=== PATIENT | male | born 1945 | race Caucasian/White ===

== ENCOUNTER 2019-09-10 08:43 | Day surgery (SDC) | payer MEDICARE, BC ==
[~2019-09-10] VITALS: Ht 170.2 cm; Wt 89.0 kg
[~2019-09-10 08:43] MED LIST: AMIO200 PO; AMLO10 PO; ASPI325; ASPI81CH PO; ATEN25 PO; ERYT.5TO OD; FOLI400 PO; HYDACE5 PO; HYDCHL25 PO; HYDR1TAB94 PO; LISI5 PO; METO25 PO; METO25ER PO; MULTIVITAMIN PO; Multivitamins1 EAC6 PO; NAPR220 PO; NITR.4SL; OMEP20ER PO; PRAV20 PO; PRED20 PO; ROSU10TA PO; SENN187 PO
[2019-09-10] MEDS ORDERED: NITR.6SL SL (09:12)
--- NOTE | 2019-09-10 09:14 | NUR ---
visits patient pre-op. EKG ordered.
--- NOTE | 2019-09-10 11:48 | NUR ---
sBAR FROM [facility] RN pt supine with no pain. Right groin site wnl no bleeding or hematoma noted. Pt with IV infusing at 200/hr per order #2 bag up with 1000ml brittni. Pt with call light, In reverse trendelenburg. IV right A/C infusing without difficulty. Pt NS Rythm.
--- NOTE | 2019-09-10 13:01 | NUR ---
PT HOB RAISED TO 45 DEGREES, GURNEY IN REVERSE TRENDELENBERG POSITION. RIGHT GROIN SITE STABLE, MARY BETH PAD AND CLEAR TEGADERM INTACT. SOFT NON TENDER WITH NO ACTIVE BLEEDING, OOZING, OR PAIN NOTED. PT PROVIDED WITH LUNCH TRAY. DISCHARGE INSTRUCTIONS REVIEWED WITH PT AND FAMILY MEMBER. BOTH VERBALIZED UNDERSTANDING OF INSTRUCTIONS. PAPERWORK PROVIDED IN [facility]. WILL CONTINUE TO MONITOR. VSS.
--- NOTE | 2019-09-10 14:14 | NUR ---
PT RIGHT GROIN SITE REMAINS STABLE, SOFT NON TENDER WITH NO ACTIVE BLEEDING, OOZING, OR PAIN PER PT. PT OUT OF BED, GETS DRESSED WITH LIMITED ASSISTANCE FROM HIS . IV REMAINS INTACT. PT AMBULATES WITH STEADY GAIT AROUND RECOVERY ROOM AND DOWN HALLWAY. DENIES CP OR SOB. AOX4. WILL CONTINUE TO MONITOR SITE UNTIL DISCHARGE.
--- NOTE | 2019-09-10 14:42 | NUR ---
PT PREVIOUSLY PROVIDED WITH DISPO INFORMATION, AMBULATES WITH STEADY GAIT, URINATES WITH NO DIFFICULTIES, TOLERATES PO FLUIDS/FOOD, RIGHT GROIN SITE REMAINS STABLE- DRESSING C/D/I SOFT NON TENDER WITH NO ACTIVE BLEEDING, OOZING, OR PAINNOTED. PT PLANS TO DRIVE THEM HOME. PT ENCOURAGED TO FOLLOW UP SCHEDUELED WITH PROVIDER, PT ALSO INFORMED AND PROVIDED WITH ORDER TO HAVE CHEM 8 LAB DRAWN ON 09/12/[address] JOSEPH. PT VERBALIZED UNDERSTANDING. IV REMOVED FROM RAC WITH CATH INTACT, PRESSURE DRESSING APPLIED. PT DENIES NEED FOR W/C RIDE OUT TO PRIVATE VEHICLE. NADN AT TIME OF DISCHARGE.
== END 2019-09-10 14:00 | disposition home or self-care (01) ==
LOC: MHTC 08:43
PROC: B205YZZ Plain Radiography of Left Heart using Other Contrast (ICD-10-PCS; principal; 2019-09-10)
PROC: B201YZZ Plain Radiography of Multiple Coronary Arteries using Other Contrast (ICD-10-PCS; principal; 2019-09-10)
PROC: B203YZZ Plain Radiography of Multiple Coronary Artery Bypass Grafts using Other Contrast (ICD-10-PCS; principal; 2019-09-10)
PROC: 4A023N7 Measurement of Cardiac Sampling and Pressure, Left Heart, Percutaneous Approach (ICD-10-PCS; principal; 2019-09-10)
DX: I25.10 Atherosclerotic heart disease of native coronary artery without angina pectoris (principal); I25.810 Atherosclerosis of coronary artery bypass graft(s) without angina pectoris; I10 Essential (primary) hypertension; E78.5 Hyperlipidemia, unspecified; E66.9 Obesity, unspecified; Z79.82 Long term (current) use of aspirin; Z79.899 Other long term (current) drug therapy; Z87.891 Personal history of nicotine dependence; Z88.0 Allergy status to penicillin; Z91.040 Latex allergy status; Z68.31 Body mass index [BMI] 31.0-31.9, adult
CPT/HCPCS: 93005; 93010; 93459; 93567; 99152; 99153; C1769; C1894; G0278; J0360; J1644; J2250; J3010; J7030; Q9967

== ENCOUNTER 2021-06-25 10:40 | Emergency (ER) | payer MEDICARE, BC ==
[~2021-06-25] VITALS: Ht 170.2 cm; Wt 82.1 kg
[~2021-06-25 10:40] MED LIST changes: +NITR.6SL SL
[2021-06-25 11:14] LABS: BASOPHILS ABSOLUTE AUTO 0.06 K/mm3 (0.00-0.23); BASOPHILS PERCENT AUTO 1 % (0-2); EOSINOPHILS ABSOLUTE AUTO 0.16 K/mm3 (0.00-0.68); EOSINOPHILS PERCENT AUTO 2 % (0-6); Hematocrit 44.7 % (37.0-53.0); IMMATURE GRAN ABSOLUTE AUTO 0.01 K/mm3 (0.00-0.10); IMMATURE GRAN PERCENT AUTO 0 % (0-1); LYMPHOCYTES ABSOLUTE AUTO 2.32 K/mm3 (0.84-5.20); LYMPHOCYTES PERCENT AUTO 29 % (21-46); MONOCYTES ABSOLUTE AUTO 0.74 K/mm3 (0.16-1.47); MONOCYTES PERCENT AUTO 9 % (4-13); Mean Corpuscular HGB 30.5 pg (26.0-34.0); Mean Corpuscular HGB Conc 33.6 g/dL (31.5-36.5); Mean Corpuscular Volume 91 fL (80-100); Mean Platelet Volume 11.3 fL (9.1-12.4); NEUTROPHILS ABSOLUTE AUTO 4.83 K/mm3 (1.96-9.15); NEUTROPHILS PERCENT AUTO 60 % (41-73); Platelet Count 174 K/mm3 (150-400); RDW Coefficient Variation 12.7 % (11.7-14.2); RDW Standard Deviation 42.3 fL (35.1-46.3); Red Blood Cell Count 4.92 M/mm3 (4.30-5.90); White Blood Cell Count 8.12 K/mm3 (4.00-11.30)
[2021-06-25 11:37] LABS: Alanine Aminotransfer (ALT/SGP 33 U/L (12-78); Albumin, Blood 4.4 g/dL (3.4-5.0); Albumin/Globulin Ratio 1.3 (0.8-1.8); Alk Phos 36 U/L (50-136); Anion Gap 7 mmol/L (6-16); Aspartate Aminotrans (AST/SGOT 20 U/L (12-37); Bilirubin, Total 0.5 mg/dL (0.1-1.0); Blood Urea Nitrogen 11 mg/dL (8-24); Bun/Creatinine Ratio 11.5 (12.0-20.0); CO2, Blood 28 mmol/L (21-32); Chloride, Blood 104 mmol/L (98-108); Creatinine, Blood 0.95 mg/dL (0.60-1.20); Globulin, Blood 3.3 g/dL (2.2-4.0); Glomerular Filtration Rate >60 (60-); Glucose, Blood 102 mg/dL (70-99); Potassium, Blood 4.6 mmol/L (3.5-5.5); Sodium, Blood 139 mmol/L (136-145); Total Protein, Blood 7.7 g/dL (6.4-8.2); Troponin I <0.015 ng/mL (0.000-0.040)
== END 2021-06-25 12:30 | disposition home or self-care (01) ==
LOC: ER 10:40
PROVIDERS: Physician Assistant
DX: R07.9 Chest pain, unspecified (principal); I10 Essential (primary) hypertension; Z87.891 Personal history of nicotine dependence; Z88.0 Allergy status to penicillin; Z91.040 Latex allergy status; Z79.899 Other long term (current) drug therapy; Z79.82 Long term (current) use of aspirin
CPT/HCPCS: 36415; 71046; 80053; 83690; 83880; 84484; 85025; 93005; 93010; 99285-25